=== PATIENT | male | born 1960 | race Two or more races ===

== ENCOUNTER 2024-01-24 06:25 | Inpatient (IN) | payer BC ==
[2024-01-24] VITALS (27 sets, daily range): BP systolic 83–147; BP diastolic 40–83; PULSE 76–89; RESP 9–30; TEMP 97.6; O2SAT 96–100
[~2024-01-24] VITALS: Ht 167.6 cm; Wt 78.1 kg
[~2024-01-24 06:25] MED LIST: AMIO200T33 PO; APIX5TAB PO; ATOR-507 PO; EZET-10 PO; GABA-339 PO; TAMS0.4C39 PO
[2024-01-24] MEDS ORDERED: MIDAZOLAM HCL 2MG/2ML 2ml VIAL (1mg/ml) ONE (07:16)
[2024-01-24] MEDS ORDERED: fentaNYL CITRATE 100 MCG/2 ML VL ONE (07:16)
[2024-01-24] MEDS ORDERED: MEPERIDINE HCL (50 MG/ML) 1 ML VIAL ONE (07:16)
--- NOTE | 2024-01-24 07:53 | DVHHP2 ---
Admitting Diagnosis: lumbar spinal stenosis with neurogenic claudication History of Present Illness Home Meds Reported Medications Amiodarone Hcl (Amiodarone Hcl) 200 Mg Tab, 50 MG PO DAILY, TAB 01/20/24 Gabapentin (Gabapentin) 600 Mg Tab, 600 MG PO TID, TAB 01/20/24 Ezetimibe (Ezetimibe) 10 Mg Tab, 10 MG PO DAILY, TAB 01/20/24 Apixaban Base (ELIQUIS) 5 Mg Tab, 5 MG PO BID, TAB 01/20/24 Tamsulosin Hcl (Tamsulosin Hcl) 0.4 Mg Cap, 0.4 MG PO DAILY, CAP 01/20/24 Atorvastatin Calcium (Lipitor) 40 Mg Tab, 40 MG PO DAILY, TAB 01/20/24 Timing/Duration of Neck Pain: Constant, Getting worse, Changing over time Quality of Neck Pain: Burning, Cramping Timing/Duration of Back Pain: Changing over time Quality of Back Pain: Burning, Cramping, Sharpness Back Pain Location: Lumbar spine Back Pain Radiation: Buttocks, Thigh area, Lower legs Past Medical History Cardiac: No pertinent Hx Pulmonary: No pertinent Hx Central Nervous System: No pertinent Hx Hemotology/Oncology: No pertinent Hx Hepatobiliary: No pertinent Hx Psychiatric: No pertinent Hx Musculoskeletal: Chronic low back pain, Osteoarthritis Rheumotologic: No pertinent Hx Infectious Disease: No peritnent Hx ENT: No pertinent Hx Renal/: No pertinent Hx Dermatology: No pertinent Hx Smoker: No Hx (Negative) Alocohol: Occassional Lives with: With family Domestic Violence: Neg Review of Systems Constitutional: No symptom reported Ears, Nose, & Throat: No symptom reported Eyes: No symptom reported Pulmonary/Respiratory: No symptom reported Gastrointestinal: No symptom reported Genitourinary: No symptom reported Musculoskeletal: Muscle stiffness Skin: No symptom reported Psychiatric: No symptom reported Endocrine: No symptom reported H&P Exam Vital Signs Vital Signs Date Time Temp Pulse Resp B/P (MAP) Pulse Ox O2 Delivery O2 Flow Rate FiO2 01/24/24 06:32 98.1 69 18 114/78 (90) 99 98.1 General Appeara: Well developed, Well nourished, Normal Appearance Head Exam: Normal inspection Neck Exam: Normal inspection, Non-tender, Normal alignment Eye Exam: bilateral eye Normal inspection, bilateral eye PERRL, bilateral eye EOMI Nasal Exam: Normal inspection Mouth: Normal Inspection Pulmonary/Respiratory: Normal inspection, Normal breath sounds, Chest non- tender, Lungs clear Cardiovascular/Chest: Normal inspection, Regular rate, Normal Rhythm Abdominal Exam: Normal bowel sounds, Soft, No tenderness, No hepatospenomegaly, No masses Rectal Exam: Deferred Back Exam: Muscle spasm, Vertebral tenderness Pelvic Exam: Not done Male Genital Exam: Not done Shoulder Exam: Normal inspection, Non-tender, Normal ROM Elbow/Forearm Exam: Normal inspection, Non-tender, Normal ROM Wrist Exam: Normal inspection, Non-tender, Normal ROM Hand Exam: Normal inspection, Non-tender, Normal ROM Hip exam: Normal inspection, Non-tender, Normal range of motion Legs: bilateral leg non-tender, bilateral leg normal inspection, bilateral leg normal range of motion, bilateral leg no evidence of injury Knees: bilateral knee non-tender, bilateral knee normal inspection, bilateral knee normal range of motion, bilateral knee no evidence of injury Ankle Exam: bilateral ankle Normal inspection, bilateral ankle Non-tender, bilateral ankle Normal range of motion, bilateral ankle No evidence of injury Foot: bilateral foot non-tender, bilateral foot normal inspection, bilateral foot normal range of motion, bilateral foot no evidence of injury Tendon/ Neuro: Motor deficit, Sensory deficit FOOD QUALITY TESTER Exam: Normal hearing, Normal speech, PERRL Motor/Sensory: Weak motor strength RLE, Weak motor strength LLE Deep Tendon Ref: All intact Neuro/Mental St: Alert, Oriented Appearance: Appropriate appearance, Appropriate insight Eye contact/ Speech: Cooperative, Good eye contact, Normal speech Coordination/Gait: Normal finger->nose, Normal gait, Negative Romberg's sign Skin Exam: Normal inspection, Normal color, Warm/dry Lymphatic: Normal inspection Assessment/Plan Primary Diagnosis lumbar spinal stenosis with neurogenic claudication Plan admit for elective lumbar spine surgery Plan discussed with: Patient CHASE ARELLANO MD Jan 24, 2024 07:53
[2024-01-24] MEDS ORDERED: DexAMETHasone SOD PHOS 10MG/1ML VIAL INJ ONE (08:23)
[2024-01-24] MEDS ORDERED: PROPOFOL 10 MG/ML 20 ML IV ONE (08:23)
[2024-01-24] MEDS ORDERED: fentaNYL CITRATE 100 MCG/2 ML VL IV PRN (09:00)
[2024-01-24] MEDS ORDERED: MIDAZOLAM HCL 2MG/2ML 2ml VIAL (1mg/ml) IV PRN (09:00)
[2024-01-24] MEDS ORDERED: MORPHINE SULFATE 4 MG/ML SYR/VIAL IV PRN (09:00)
[2024-01-24] MEDS ORDERED: ePHEDrine SULFATE 50 MG/ML AMP IV PRN (09:00)
[2024-01-24] MEDS ORDERED: hydrALAZINE HCL 20 MG/ML VL IV PRN (09:00)
[2024-01-24] MEDS: LIDOCAINE 1%HCL (LOCAL ANESTH) 10 ML MDV IJ ONE (09:17)
[2024-01-24] MEDS ORDERED: SUGAMMADEX 200mg/2ml Vial (100MG/ML) IV ONE (11:13)
[2024-01-24] MEDS ORDERED: ceFAZolin 1GM/50ML 50 ML IV SCH ×4 (11:15→14:00)
[2024-01-24] MEDS ORDERED: MORPHINE SULFATE INJ 2 MG/ml SYRG IV PRN ×4 (11:15)
[2024-01-24] MEDS ORDERED: ONDANSETRON HCL 4 MG/2 ML VIAL IV PRN (11:15)
[2024-01-24] MEDS ORDERED: ACETAMINOPHEN 325 MG TAB PO PRN (11:15)
[2024-01-24] MEDS ORDERED: HYDROcodone-ACET 10/325MG TAB PO PRN (11:15)
[2024-01-24] MEDS ORDERED: NITROGLYCERIN 0.4 MG SL TAB SL PRN ×2 (11:15)
[2024-01-24] MEDS ORDERED: D5W/SOD CHLO 0.9% 1,000 ML IV SCH (11:15)
[2024-01-24] MEDS: KETOROLAC TROMETH 30 MG/ML 1ML VIAL IV ONE (12:45)
[2024-01-24] MEDS: HYDROmorphone HCL 2 MG/ML VL/or syr IV PRN (12:50)
[2024-01-24] MEDS: MIDAZOLAM HCL 2MG/2ML 2ml VIAL (1mg/ml) IV ONE (13:05)
[2024-01-24] MEDS: NOREPINEPHRINE 8 MG/250ML KIT 250 ML IV SCH (13:36)
[2024-01-24] MEDS: LIDOCAINE W/ EPINEPHRINE 1% 20ML VIAL ONE (13:45)
[2024-01-24] MEDS: ceFAZolin 2 GM/D5W100ml 100 ML IV ONE (13:46)
[2024-01-24] MEDS: levoFLOXacin 500MG 100 ML IV ONE ×2 (13:46)
[2024-01-24] MEDS: TRANEXAMIC ACID 20 ML ONE (13:46)
[2024-01-24] MEDS: DOXAPRAM HCL 20 MG/ML 20ML VIAL INJ IV ONE (13:47)
[2024-01-24] MEDS: MIDAZOLAM HCL 2MG/2ML 2ml VIAL (1mg/ml) ONE (13:47)
[2024-01-24] MEDS: HYDROmorphone HCL 2 MG/ML VL/or syr ONE (13:47)
[2024-01-24] MEDS: levoFLOXacin 750MG 150 ML IV ONE (13:47)
[2024-01-24] MEDS: NOREPINEPHRINE 8 MG/250ML KIT 250 ML IV ONE (13:48)
[2024-01-24] MEDS ORDERED: CYCLOBENZAPRINE HCL 10 MG TAB PO SCH (14:00)
[2024-01-24] MEDS: CYCLOBENZAPRINE HCL 10 MG TAB PO SCH (14:00)
[2024-01-24] MEDS: ONDANSETRON HCL 4 MG/2 ML VIAL IV PRN (14:30)
[2024-01-24] MEDS: METOCLOPRAMIDE HCL 5MG/ml INJ 2ml VIAL IV ONE (15:20)
[2024-01-24] MEDS: ceFAZolin 1GM/50ML 50 ML IV SCH (15:30)
[2024-01-24] MEDS: METOCLOPRAMIDE HCL 5MG/ml INJ 2ml VIAL ONE (15:35)
[2024-01-24] MEDS: ACETAMINOPHEN IV 100 ML IV ONE (16:04)
[2024-01-24] MEDS: ONDANSETRON HCL 4 MG/2 ML VIAL IV ONE (16:11)
[2024-01-24] MEDS: D5W/SOD CHLO 0.9% 1,000 ML IV SCH (16:12)
[2024-01-24] MEDS: ACETAMINOPHEN IV 1000 MG/100ML (10MG/ML) IV ONE (16:13)
[2024-01-24] MEDS: PROCHLORPERAZINE EDISYLATE 5 MG/ML 2ML VIAL IV ONE (16:29)
--- NOTE | 2024-01-24 16:55 | DVHOP2 ---
Operative Report - 2 Report Details Date: 01/24/24 Preop Diagnosis: lumbar spondylolisthesis /spinal stenosis causing incapacitating low back pain and radiculopathy Postop Diagnosis: same as pre op Surgeon: Bakari Kern MD Sweatband Cutting Machine Operator: Angelica diaz NP Anesthesiologist: farhat Anesthesia: General Consent: The patient was informed of the risks and benefits of the procedure. These include but are not limited to complications of anesthesia, postoperative infection, incomplete relief of symptoms, recurrence of symptoms, damage to blood vessels, nerves and tendons, deep venous thrombosis, pulmonary embolism and possible need for repeat surgery in the future. Name of Procedure Performed see detailed note Procedure Details Procedure Details: Pre-op Diagnosis: Lumbar Degenerative Disk Disease and Lumbar Spinal Stenosis causing Incapacitating back pain, radiculopathy and progressive neurologic deficit Post-op Diagnosis: Lumbar Degenerative Disk Disease and Lumbar Spinal Stenosis causing Incapacitating back pain, radiculopathy and progressive neurologic deficit Procedure: Lumbar 5 laminectomy with Lumbar 5 foraminotomies and facetectomies to decompress central canal and Lumbar 5 nerve roots Lumbar 4 laminectomy with Lumbar 4 foraminotomies and facetectomies to decompress central canal and Lumbar 4 nerve roots Lumbar 3 laminectomy with Lumbar 3 foraminotomies and facetectomies to decompress central canal and Lumbar 4 nerve roots Lumbar 4 to 5 posterior spinal interbody fusion with PEEK cage Lumbar 3 to 5 posterior spinal instrumentation with pedicle screws Local Bone Autograft For Fusion Allograft Bone Substitute (Bacterin) to augment Fusion Use of Demineralized Bone Matrix to Augment Fusion Microscope For Microdissection Surgeon: Bakari Kern MD Assist: JEREMY Mohr Anesthesia: General Fluids and EBL: See anesthesia note Patient was seen in the Pre Anesthesia Care Unit (PACU) and the operative site was initialed by me. All questions were answered to the patients satisfaction and chart reviewed. The patient was taken to the operative room where pre- operative antibiotics were given 30 minutes prior to incision. General anesthesia was induced and neuro-monitoring leads placed. Araiza catheter was placed. The patient was turned prone onto the [facility] spinal table. While positioning, I made sure that the belly was free to allow proper expansion of the lungs. The hips were extended and all bony prominences padded. The shoulders were abducted 80 degree and the elbows flexed 100 degrees with no tension on the brachial plexus. I check the foot arterial pulses and they were palpable. The patient was prepped and draped and time out was taken at this time per usual protocol. At this time, the C-arm fluoroscope was brought in and was used to rahel the incision borders proximally and distally. Using a Number 10 Blade, an incision was made extending it proximally and distally per C arm rahel from the posterior spinous process of lumbar 4,5 down to the lumbo-dorsal fascia. All bleeding was controlled with electrocautery. Self-retaining retractors were placed. Electrocautery was then used to take down the lumbo- dorsal fascia, to free the muscle off the bone bilaterally. A Yamila retractor was placed over the posterior spinous process proximally and a lateral C-arm fluoroscope image was taken to insure we were at the correct level. Next, using bovie electro cautery, The deep fascia laterally to the facet joints was removed to expose the transverse processes of lumbar 3, 4 and 5 while taking care to avoid injuring the facet capsule at the proximal end of the incision. Next, the microscope was bought in for visualization and using a Luxell rongeur, the posterior spinous process of lumbar 3 and 4 and 5 bone were removed and the bone was saved for use as local autograft. I used alternating Kerison 2 mm and 3 mm rongeurs to perform central laminectomies lumbar 5 and 4 and 3 to decompress the central canal. Next using alternating Kerison 2mm and 3 mm rongeurs, the superior articular facets of lumbar 3, 4 and 5 were removed bilaterally to decompress the lateral recess (facetectomies) and then extended proximally to decompress the foramen bilaterally (foraminotomies). I used a ball tipped nerve probed to insure that the respective nerve roots were able to be mobilized 5mm in each direction were unimpeded in the lateral recess and foramen. Next I carefully inspected the dura to make sure no durotomy was visible and it was not. I retracted the right lumbar 5 nerve medially and used increasing size jamal until the proper size prepared and then inserted a 8X28mm PEEK cage in to the disc space at L4/5 using C arm fluoroscopy. I covered the exposed dura with gelfoam soaked in thrombin and the microscope was wheeled away from the operative filed. The C-arm fluoroscope was brought in and perfect AP views of the lumbar 4 and 5 pedicles were obtained. I placed bilateral pedicle screws at these levels by: using a Lenke awl to make a ship's pilot hole, then a ball tip robe to make sure there was no pedicle breach, then a tap to prepare the track and a 6.5 mm diameter 45 mm length pedicle screw was placed bilaterally. This step to place bilateral pedicle screws was repeated up to the lumbar 3, 4 and 5 level. Next, the c-arm fluoroscope took an AP and lateral x-ray to ensure proper placement of the pedicle screws. Next, the neuro-stimulation probe was placed over the tip of each screw and each screw stimulated only after a current greater than 10 mA was delivered to the screw. Next , I took a Midas Aung Drill to decorticate the transverse process which were exposed and local bone graft, Bacterin allograft bone substitute and Demineralized bone matrix were placed along the inter transverse process intervals bilaterally (the fusion bed). Next a curved nish sized to fit the pedicle screw interval was placed and secured to each pedicle screw using set screws, The set screws were tightened using a torque screwdriver (set to 10 N*M torque) to secure the nish to the pedicle screws bilaterally. Final AP and lateral C arm fluoroscopic films were taken at this time. Next a 10 Salvadorean diameter Hemovac drain was laced deep to the lumbo- dorsal fascia. The lumbo-dorsal fascia was closed with interrupted 0-Vicry sutures. The subcutaneous tissue was closed with interrupted 2-0 Vicryl sutures. The skin was closed with running 2-0 nylon suture. Sterile dressings were place. The pt. was turned supine onto the stretcher, extubated and taken to the recovery room in stable condition. At the end of the case a TLSO brace was placed as well as an external bone stimulator. Condition Stable Disposition Still a Patient BAKARI KERN MD Jan 24, 2024 16:55
--- NOTE | 2024-01-24 19:33 | DVHINCON2 ---
Date Seen: Jan 24, 2024 Referring Physician Orthopedic spine surgery. Reason for Consultation Medical management. History of Present Illness 63-year-old male with known history of chronic AFib currently on anticoagulation which was had five days ago before surgery, dyslipidemia, BPH, peripheral neuropathy, chronic back pain with lumbar stenosis with neurogenic claudication status post L3-4 five surgery on01/24/2024. I was consulted for medical management. Patient currently denying any chest pain shortness of breath nausea vomiting diarrhea hematemesis hematochezia melena dysuria hematuria. Past Medical History Chronic AFib Dyslipidemia Peripheral neuropathy Lumbar spine stenosis with chronic back pain Past Surgical History Left inguinal hernia surgery Carpal tunnel surgery Status post L3-4 five lumbar spine surgery Allergies: Coded Allergies: NO KNOWN ALLERGIES (Unverified , 01/20/24) Home Meds Reported Medications Amiodarone Hcl (Amiodarone Hcl) 200 Mg Tab, 50 MG PO DAILY, TAB 01/20/24 Gabapentin (Gabapentin) 600 Mg Tab, 600 MG PO TID, TAB 01/20/24 Ezetimibe (Ezetimibe) 10 Mg Tab, 10 MG PO DAILY, TAB 01/20/24 Apixaban Base (ELIQUIS) 5 Mg Tab, 5 MG PO BID, TAB 01/20/24 Tamsulosin Hcl (Tamsulosin Hcl) 0.4 Mg Cap, 0.4 MG PO DAILY, CAP 01/20/24 Atorvastatin Calcium (Lipitor) 40 Mg Tab, 40 MG PO DAILY, TAB 01/20/24 Current Medications Current Medications Medications (Trade) Dose Ordered Sig/Elzbieta Route PRN Reason Start Time Stop Time Status Last Admin Hydralazine HCl (Apresoline Injection) 5 mg Q10M PRN IV SBP>160 01/24/24 09:00 01/24/24 09:51 DC Morphine Sulfate 2 mg Q2HPRN PRN IV BREAKTHROUGH PAIN (7-10) 01/24/24 09:00 01/24/24 09:08 DC Midazolam HCl (Versed Injection) 1 mg Q10M PRN IV ANXIETY 01/24/24 09:00 01/24/24 09:41 DC Ephedrine Sulfate (ePHEDrine SULFATE) 10 mg Q10M PRN IV SBP LESS THAN 90 01/24/24 09:00 01/24/24 09:41 DC Fentanyl Citrate 25 mcg Q1HP PRN IV BREAKTHROUGH PAIN (7-10) 01/24/24 09:00 01/24/24 09:08 DC Hydromorphone HCl (Dilaudid Injection) 0.5 mg Q10M PRN IV SEVERE PAIN (7-10 PAIN SCALE) 01/24/24 09:00 01/24/24 09:41 DC 01/24/24 13:00 Dextrose/Sodium Chloride 1,000 ml @ 100 mls/hr Q10H IV 01/24/24 11:15 UNV Ondansetron HCl (Zofran) 4 mg Q4HP PRN IV NAUSEA / VOMITING 01/24/24 11:15 01/24/24 14:30 Acetaminophen (Tylenol Tablet) 650 mg Q6HP PRN PO MILD PAIN (1-3 PAIN SCALE) 01/24/24 11:15 Acetaminophen/ Hydrocodone Bitart (Franklin 10/325MG Tab) 1 tab Q6HP PRN PO MODERATE PAIN (4-6 PAIN SCALE) 01/24/24 11:15 UNV Morphine Sulfate 1 mg Q4HP PRN IV SEVERE PAIN (7-10 PAIN SCALE) 01/24/24 11:15 UNV Cyclobenzaprine HCl (Flexeril Tablet) 10 mg TID PO 01/24/24 14:00 UNV Docusate Sodium (Colace Capsule) 100 mg BID PO 01/24/24 22:00 UNV Cefazolin Sodium 50 ml @ 100 mls/hr Q8HR IV 01/24/24 14:00 01/24/24 13:46 DC Nitroglycerin (Ntrostat Sublingual) 0.4 mg Q5MINP PRN SL FOR CHEST PAIN 01/24/24 11:15 Morphine Sulfate 2 mg Q30M PRN IV FOR CHEST PAIN 01/24/24 11:15 Dextrose/Sodium Chloride 1,000 ml @ 100 mls/hr Q10H IV 01/24/24 11:15 01/24/24 16:12 Ondansetron HCl (Zofran) 4 mg Q4HP PRN IV NAUSEA / VOMITING 01/24/24 11:15 UNV Acetaminophen (Tylenol Tablet) 650 mg Q6HP PRN PO MILD PAIN (1-3 PAIN SCALE) 01/24/24 11:15 UNV Acetaminophen/ Hydrocodone Bitart (Franklin 10/325MG Tab) 1 tab Q6HP PRN PO MODERATE PAIN (4-6 PAIN SCALE) 01/24/24 11:15 Morphine Sulfate 1 mg Q4HP PRN IV SEVERE PAIN (7-10 PAIN SCALE) 01/24/24 11:15 Cefazolin Sodium 50 ml @ 50 mls/hr Q8H IV 01/24/24 11:15 01/24/24 13:47 DC Cyclobenzaprine HCl (Flexeril Tablet) 10 mg TID PO 01/24/24 14:00 Docusate Sodium (Colace Capsule) 100 mg BID PO 01/24/24 22:00 Cefazolin Sodium 50 ml @ 100 mls/hr Q8HR IV 01/24/24 14:00 01/24/24 13:46 DC Cefazolin Sodium 50 ml @ 100 mls/hr Q8HR IV 01/24/24 14:00 01/26/24 06:29 UNV Nitroglycerin (Ntrostat Sublingual) 0.4 mg Q5MINP PRN SL FOR CHEST PAIN 01/24/24 11:15 UNV Morphine Sulfate 2 mg Q30M PRN IV FOR CHEST PAIN 01/24/24 11:15 UNV Norepinephrine Bitartrate 250 ml @ 18.75 mls/ hr [id number] IV 01/24/24 13:45 01/24/24 13:36 Cefazolin Sodium 50 ml @ 50 mls/hr Q8H IV 01/24/24 15:00 01/25/24 23:59 01/24/24 15:30 Review of Systems 12 review of system were negative except mentioned above. 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 Bakari Kern for resumption of Eliquis. Risks and benefits and alternatives of Eliquis including risk of stroke while he was off of Eliquis explained with the patient and patient's family at bedside they understand verbalized understanding and agreeable to plan. Plan discussed with: Patient Date of Service: Jan 24, 2024 Billing Provider: INDRA HOROWITZ MD Common Visit Codes: NOT BILLABLE INDRA HOROWITZ MD Jan 24, 2024 19:33
[2024-01-24 20:13] LABS: Alanine Aminotransferase 38 U/L (7-40); Albumin 3.8 g/dL (3.2-4.8); Alkaline Phosphatase 54 U/L (46-116); Anion Gap 11 (5-15); Aspartate Aminotransferase 41 U/L (13-40); BUN/Creatinine Ratio 14.9 (10.0-20.0); Bilirubin, Total 0.5 mg/dL (0.2-1.0); Blood Urea Nitrogen 13 mg/dL (9-23); Calcium 8.6 mg/dL (8.7-10.4); Carbon Dioxide 21 mmol/L (20-31); Chloride 109 mmol/L (98-107); Glucose 216 mg/dL (74-106); Potassium 4.5 mmol/L (3.5-5.1); Sodium 141 mmol/L (136-145); Total Protein 6.4 g/dL (5.7-8.2)
[2024-01-24 20:17] LABS: Basophils # (auto) 0 10 ^3/uL (0-0.2); Eosinophils # (auto) 0 10 ^3/uL (0-0.8); Hematocrit 36.8 % (41.0-53.0); Hemoglobin 12.3 g/dL (13.5-17.5); Lymphocytes # (auto) 0.4 10 ^3/uL (0.4-5.4); Lymphocytes % (auto) 2.6 % (10.0-50.0); Mean Corpuscular Hgb Conc. 33.6 g/dL (32.0-36.0); Mean Corpuscular Volume 92.3 fL (80.0-100.0); Monocytes # (auto) 0.6 10 ^3/uL (0-1.3); Neutrophils # (auto) 13.1 10 ^3/uL (1.6-8.6); Neutrophils % (auto) 93.4 % (37.0-80.0); Nucleated Red Blood Cells % 0.1 %; Platelet Count (auto) 232 10^3/uL (140-450); Red Blood Cells 3.98 10^6/uL (4.5-5.90); Red Cell Distribution Width 13.8 % (11.8-14.3); White Blood Cell 14.1 10^3/uL (4.4-10.8)
[2024-01-24] MEDS: DOCUSATE SOD 100 MG CAP PO SCH (21:50)
[2024-01-24] MEDS ORDERED: DOCUSATE SOD 100 MG CAP PO SCH (22:00)
[2024-01-25] VITALS (64 sets, daily range): BP systolic 83–298; BP diastolic 35–291; PULSE 65–100; RESP 9–29; TEMP 97.8–100; O2SAT 96–100
[2024-01-25 05:30] LABS: Chloride 112 mmol/L (98-107); Potassium 4.3 mmol/L (3.5-5.1); Sodium 141 mmol/L (136-145)
[2024-01-25 05:31] LABS: Anion Gap 6 (5-15); Calcium 8.4 mg/dL (8.7-10.4); Carbon Dioxide 23 mmol/L (20-31)
[2024-01-25 05:36] LABS: BUN/Creatinine Ratio 14.9 (10.0-20.0); Blood Urea Nitrogen 10 mg/dL (9-23); Glucose 142 mg/dL (74-106)
[2024-01-25] MEDS: ACETAMINOPHEN 325 MG TAB PO PRN (06:39)
[2024-01-25] MEDS: HYDROcodone-ACET 10/325MG TAB PO PRN (11:01)
--- NOTE | 2024-01-25 13:30 | DVHPN2 ---
Subjective Overnight events noted. Patient was sitting in the chair comfortably patient was Changes from previous H/P or p: No Changes Objective Vitals Vital Signs Date Time Temp Pulse Resp B/P (MAP) Pulse Ox O2 Delivery O2 Flow Rate FiO2 01/25/24 11:15 78 22 108/66 (80) 99 01/25/24 08:00 Room Air* 0 21 01/25/24 08:00 98.1 98.1 Intake/Output Intake and Output 01/25/24 07:00 Intake Total 1800 ml Output Total 550 ml Balance 1250 ml Intake Oral 300 ml IV Total 1500 ml Output Urine Total 200 ml Drainage Total 150 ml Other 200 ml Exam HEENT pupils are reactive Neck is supple CV is S1-S2 regular rate and rhythm Respiratory are clear GI posterior bowel sounds Extremity 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 Medications Current Medications Medications Dose Ordered Sig/Elzbieta Route Start Time Stop Time Status Last Admin Dose Admin Dextrose/Sodium Chloride 1,000 ml @ 100 mls/hr Q10H IV 01/24/24 11:15 UNV Ondansetron HCl 4 mg Q4HP PRN IV 01/24/24 11:15 01/24/24 14:30 4 MG Acetaminophen 650 mg Q6HP PRN PO 01/24/24 11:15 01/25/24 06:39 650 MG Acetaminophen/ Hydrocodone Bitart 1 tab Q6HP PRN PO 01/24/24 11:15 UNV Morphine Sulfate 1 mg Q4HP PRN IV 01/24/24 11:15 UNV Cyclobenzaprine HCl 10 mg TID PO 01/24/24 14:00 UNV Docusate Sodium 100 mg BID PO 01/24/24 22:00 UNV Nitroglycerin 0.4 mg Q5MINP PRN SL 01/24/24 11:15 Morphine Sulfate 2 mg Q30M PRN IV 01/24/24 11:15 Dextrose/Sodium Chloride 1,000 ml @ 100 mls/hr Q10H IV 01/24/24 11:15 01/25/24 03:03 100 MLS/HR Ondansetron HCl 4 mg Q4HP PRN IV 01/24/24 11:15 UNV Acetaminophen 650 mg Q6HP PRN PO 01/24/24 11:15 UNV Acetaminophen/ Hydrocodone Bitart 1 tab Q6HP PRN PO 01/24/24 11:15 01/25/24 11:01 1 TAB Morphine Sulfate 1 mg Q4HP PRN IV 01/24/24 11:15 Cyclobenzaprine HCl 10 mg TID PO 01/24/24 14:00 01/25/24 06:01 10 MG Docusate Sodium 100 mg BID PO 01/24/24 22:00 01/25/24 10:24 100 MG Cefazolin Sodium 50 ml @ 100 mls/hr Q8HR IV 01/24/24 14:00 01/26/24 06:29 UNV Nitroglycerin 0.4 mg Q5MINP PRN SL 01/24/24 11:15 UNV Morphine Sulfate 2 mg Q30M PRN IV 01/24/24 11:15 UNV Norepinephrine Bitartrate 250 ml @ 18.75 mls/ hr [id number] IV 01/24/24 13:45 01/24/24 13:36 18.75 MLS/HR Cefazolin Sodium 50 ml @ 50 mls/hr Q8H IV 01/24/24 15:00 01/25/24 23:59 01/25/24 06:33 50 MLS/HR Laboratory Results Laboratory Tests 01/24/24 19:41 01/25/24 04:35 Chemistry Test 01/24/24 19:41 01/25/24 04:35 Albumin 3.8 g/dL (3.2-4.8) Calcium Level 8.6 mg/dL (8.7-10.4) L 8.4 mg/dL (8.7-10.4) L Total Protein 6.4 g/dL (5.7-8.2) LFT Test 01/24/24 19:41 Alanine Aminotransferase (ALT) 38 U/L (7-40) Alkaline Phosphatase 54 U/L (46-116) Aspartate Amino Transferase (AST) 41 U/L (13-40) H Total Bilirubin 0.5 mg/dL (0.2-1.0) Assessment/Plan Assessment/Plan 63-year-old male with a known history of chronic AFib currently off the anticoagulation because of surgery, dyslipidemia, peripheral neuropathy, who initially was brought in by spine surgery as an elective procedure for lumbar spine stenosis. 1. Chronic AFib currently in rate controlled, resume amiodarone 2. Dyslipidemia 3. Peripheral neuropathy 4. Lumbar spine stenosis with neurogenic claudication status post L3/4/5 laminectomy with decompression of central canal -DVT GI prophylaxis, pain meds as needed, physical therapy evaluation and treatment -please call spine surgery albicans resume Eliquis. Stop stroke explained to the patient in detail while he is off of Eliquis. He understands verbalized understanding and agreeable to plan. Plan discussed with: Patient My Orders Orders - INDRA HOROWITZ MD Procedure Category Date Status Time * Cardiology Consult CONS 01/24/24 Transmitted 16:46 *[facility] CONS 01/24/24 Transmitted -[place] 16:46 [facility] Screen SOPHIE 01/24/24 In Process 18:35 Date of Service: Jan 25, 2024 Billing Provider: INDRA HOROWITZ MD Common Visit Codes: NOT BILLABLE INDRA HOROWITZ MD Jan 25, 2024 13:30
[2024-01-26] VITALS (15 sets, daily range): BP systolic 96–128; BP diastolic 51–88; PULSE 65–87; RESP 12–20; TEMP 97.9–98.5; O2SAT 88–98
[2024-01-26 08:59] LABS: Potassium 3.8 mmol/L (3.5-5.1); Sodium 143 mmol/L (136-145)
[2024-01-26 09:00] LABS: Calcium 8.6 mg/dL (8.7-10.4)
[2024-01-26 09:03] LABS: Chloride 110 mmol/L (98-107)
[2024-01-26 09:05] LABS: BUN/Creatinine Ratio 11.3 (10.0-20.0); Blood Urea Nitrogen 8 mg/dL (9-23); Glucose 126 mg/dL (74-106)
[2024-01-26 09:13] LABS: Basophils # (auto) 0.1 10 ^3/uL (0-0.2); Basophils % (auto) 0.4 % (0.0-2.0); Eosinophils # (auto) 0.1 10 ^3/uL (0-0.8); Eosinophils % (auto) 1.1 % (0.0-7.0); Hematocrit 33.7 % (41.0-53.0); Hemoglobin 11.3 g/dL (13.5-17.5); Lymphocytes # (auto) 1.8 10 ^3/uL (0.4-5.4); Lymphocytes % (auto) 15.8 % (10.0-50.0); Mean Corpuscular Hemoglobin 31.1 pg (28.0-32.0); Mean Corpuscular Hgb Conc. 33.7 g/dL (32.0-36.0); Mean Corpuscular Volume 92.1 fL (80.0-100.0); Monocytes # (auto) 0.5 10 ^3/uL (0-1.3); Monocytes % (auto) 4.5 % (0.0-12.0); Neutrophils # (auto) 8.9 10 ^3/uL (1.6-8.6); Neutrophils % (auto) 78.2 % (37.0-80.0); Platelet Count (auto) 201 10^3/uL (140-450); Red Blood Cells 3.65 10^6/uL (4.5-5.90); Red Cell Distribution Width 13.9 % (11.8-14.3); White Blood Cell 11.3 10^3/uL (4.4-10.8)
[2024-01-26 11:10] LABS: Anion Gap 7 (5-15); Carbon Dioxide 26 mmol/L (20-31)
[2024-01-26] MEDS ORDERED: AMIO100T3 PO (14:22)
--- NOTE | 2024-01-26 14:55 | DVHPN2 ---
Subjective Overnight events noted. Patient still had two EUGENE drain which is draining about 100 mL. 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 Medications Current Medications Medications Dose Ordered Sig/Elzbieta Route Start Time Stop Time Status Last Admin Dose Admin Dextrose/Sodium Chloride 1,000 ml @ 100 mls/hr Q10H IV 01/24/24 11:15 UNV Ondansetron HCl 4 mg Q4HP PRN IV 01/24/24 11:15 01/24/24 14:30 4 MG Acetaminophen 650 mg Q6HP PRN PO 01/24/24 11:15 01/25/24 06:39 650 MG Acetaminophen/ Hydrocodone Bitart 1 tab Q6HP PRN PO 01/24/24 11:15 UNV Morphine Sulfate 1 mg Q4HP PRN IV 01/24/24 11:15 UNV Cyclobenzaprine HCl 10 mg TID PO 01/24/24 14:00 UNV Docusate Sodium 100 mg BID PO 01/24/24 22:00 UNV Nitroglycerin 0.4 mg Q5MINP PRN SL 01/24/24 11:15 Morphine Sulfate 2 mg Q30M PRN IV 01/24/24 11:15 Dextrose/Sodium Chloride 1,000 ml @ 100 mls/hr Q10H IV 01/24/24 11:15 01/26/24 13:30 100 MLS/HR Ondansetron HCl 4 mg Q4HP PRN IV 01/24/24 11:15 UNV Acetaminophen 650 mg Q6HP PRN PO 01/24/24 11:15 UNV Acetaminophen/ Hydrocodone Bitart 1 tab Q6HP PRN PO 01/24/24 11:15 01/26/24 07:58 1 TAB Morphine Sulfate 1 mg Q4HP PRN IV 01/24/24 11:15 Cyclobenzaprine HCl 10 mg TID PO 01/24/24 14:00 01/26/24 13:31 10 MG Docusate Sodium 100 mg BID PO 01/24/24 22:00 01/26/24 10:02 100 MG Cefazolin Sodium 50 ml @ 100 mls/hr Q8HR IV 01/24/24 14:00 01/26/24 06:29 UNV Nitroglycerin 0.4 mg Q5MINP PRN SL 01/24/24 11:15 UNV Morphine Sulfate 2 mg Q30M PRN IV 01/24/24 11:15 UNV Norepinephrine Bitartrate 250 ml @ 18.75 mls/ hr [id number] IV 01/24/24 13:45 01/24/24 13:36 18.75 MLS/HR Laboratory Results Laboratory Tests 01/26/24 08:28 Chemistry Test 01/26/24 08:28 Calcium Level 8.6 mg/dL (8.7-10.4) L Microbiology Microbiology Date/Time Source Procedure Growth Status 01/24/24 18:45 Nose MRSA Screen - Final Complete Assessment/Plan Assessment/Plan 63-year-old male with a known history of chronic AFib currently off the anticoagulation because of surgery, dyslipidemia, peripheral neuropathy, who initially was brought in by spine surgery as an elective procedure for lumbar spine stenosis. 1. Chronic AFib currently in rate controlled, resume amiodarone 2. Dyslipidemia 3. Peripheral neuropathy 4. Lumbar spine stenosis with neurogenic claudication status post L3/4/5 laminectomy with decompression of central canal -DVT GI prophylaxis, pain meds as needed, physical therapy evaluation and treatment -please call spine surgery albicans resume Eliquis. Stop stroke explained to the patient in detail while he is off of Eliquis. He understands verbalized understanding and agreeable to plan. Plan discussed with: Patient, Spouse Date of Service: Jan 26, 2024 Billing Provider: INDRA HOROWITZ MD Common Visit Codes: NOT BILLABLE INDRA HOROWITZ MD Jan 26, 2024 14:55
[2024-01-27] VITALS (8 sets, daily range): BP systolic 100–127; BP diastolic 59–82; PULSE 73–93; RESP 14–20; TEMP 98.1–98.7; O2SAT 95–98
--- NOTE | 2024-01-27 18:56 | DVHINCON2 ---
Date of service: Jan 27, 2024 History of Present Illness 63-year-old male with known history of parox AFib currently on anticoagulation which was had five days ago before surgery, dyslipidemia, BPH, peripheral neuropathy, chronic back pain with lumbar stenosis with neurogenic claudication status post L3-4 five surgery on01/24/2024. I was consulted for medical management. Patient currently denying any chest pain shortness of breath nausea vomiting diarrhea hematemesis hematochezia melena dysuria hematuria. Past Medical History Past Medical History Chronic AFib Dyslipidemia Peripheral neuropathy Lumbar spine stenosis with chronic back pain Past Surgical History Past Surgical History Left inguinal hernia surgery Carpal tunnel surgery Status post L3-4 five lumbar spine surgery Past Medical History reviewed Family History: Patient reports no known family medical history. Allergies: Coded Allergies: NO KNOWN ALLERGIES (Unverified , 01/20/24) Home Meds Reported Medications Amiodarone Hcl (AMIODARONE HCL) 100 Mg Tab, 50 MG PO DAILY 01/26/24 Gabapentin (Gabapentin) 600 Mg Tab, 600 MG PO TID, TAB 01/20/24 Ezetimibe (Ezetimibe) 10 Mg Tab, 10 MG PO DAILY, TAB 01/20/24 Apixaban Base (ELIQUIS) 5 Mg Tab, 5 MG PO BID, TAB 01/20/24 Tamsulosin Hcl (Tamsulosin Hcl) 0.4 Mg Cap, 0.4 MG PO DAILY, CAP 01/20/24 Atorvastatin Calcium (Lipitor) 40 Mg Tab, 40 MG PO DAILY, TAB 01/20/24 Discontinued Reported Medications Amiodarone Hcl (Amiodarone Hcl) 200 Mg Tab, 50 MG PO DAILY, TAB 01/20/24 Review of Systems 10 pt ros otherwise negative Vital Signs Vital Signs Date Time Temp Pulse Resp B/P (MAP) Pulse Ox O2 Delivery O2 Flow Rate FiO2 01/27/24 17:12 98.1 89 18 102/63 (76) 97 98.1 01/27/24 08:00 Room Air* 0 21 Physical Exam nad s1 s2 rrr ctab soft nt/nd no edema Labs/Diagnostic Data Labs Test 01/26/24 08:28 01/24/24 19:41 Range/Units White Blood Count 11.3 H 4.4-10.8 10^3/uL Red Blood Count 3.65 L 4.5-5.90 10^6/uL Hemoglobin 11.3 L 13.5-17.5 g/dL Hematocrit 33.7 L 41.0-53.0 % Mean Corpuscular Volume 92.1 80.0-100.0 fL Mean Corpuscular Hemoglobin 31.1 28.0-32.0 pg Mean Corpuscular Hemoglobin Concent 33.7 32.0-36.0 g/dL Red Cell Distribution Width 13.9 11.8-14.3 % Platelet Count 201 140-450 10^3/uL Mean Platelet Volume 7.4 6.9-10.8 fL Neutrophils (%) (Auto) 78.2 37.0-80.0 % Lymphocytes (%) (Auto) 15.8 10.0-50.0 % Monocytes (%) (Auto) 4.5 0.0-12.0 % Eosinophils (%) (Auto) 1.1 0.0-7.0 % Basophils (%) (Auto) 0.4 0.0-2.0 % Neutrophils # (Auto) 8.9 H 1.6-8.6 10 ^3/uL Lymphocytes # (Auto) 1.8 0.4-5.4 10 ^3/uL Monocytes # (Auto) 0.5 0-1.3 10 ^3/uL Eosinophils # (Auto) 0.1 0-0.8 10 ^3/uL Basophils # (Auto) 0.1 0-0.2 10 ^3/uL Nucleated Red Blood Cells 0.0 % Sodium Level 143 136-145 mmol/L Potassium Level 3.8 3.5-5.1 mmol/L Chloride Level 110 H 98-107 mmol/L Carbon Dioxide Level 26 20-31 mmol/L Anion Gap 7 5-15 Blood Urea Nitrogen 8 L 9-23 mg/dL Creatinine 0.71 0.700-1.30 mg/dL Glomerular Filtration Rate Calc 104 >90 mL/min BUN/Creatinine Ratio 11.3 10.0-20.0 Serum Glucose 126 H 74-106 mg/dL Calcium Level 8.6 L 8.7-10.4 mg/dL Total Bilirubin 0.5 0.2-1.0 mg/dL Aspartate Amino Transferase (AST) 41 H 13-40 U/L Alanine Aminotransferase (ALT) 38 7-40 U/L Alkaline Phosphatase 54 46-116 U/L Total Protein 6.4 5.7-8.2 g/dL Albumin 3.8 3.2-4.8 g/dL Microbiology Date/Time Source Procedure Growth Status 01/24/24 18:45 Nose MRSA Screen - Final Complete Assessment hx of pafib obesity postop spine surgery transient hypotension Plan/Recommendation bp normal tele is sinus no symptoms resume home meds fu with his cards after dc will sign off Plan discussed with: Patient ANDREIA DIAS MD Jan 27, 2024 18:56
[2024-01-28 05:00] VITALS: BP 107/83; PULSE 83; RESP 17; TEMP 97.9; O2SAT 96
[2024-01-28 08:00] VITALS: PULSE 82; PULSE 93; RESP 16
[2024-01-28 09:00] VITALS: BP 118/77; PULSE 82; RESP 20; TEMP 96.8; O2SAT 98
--- NOTE | 2024-01-28 09:03 | DVHDS2 ---
Discharge Summary Date of Admission Jan 24, 2024 at 11:11 Date of Discharge: Jan 28, 2024 Admitting Diagnosis lumbar spinal stenosis Labs/Diagnostic Data: Laboratory Results Test 01/26/24 08:28 01/24/24 19:41 White Blood Count 11.3 10^3/uL (4.4-10.8) Red Blood Count 3.65 10^6/uL (4.5-5.90) Hemoglobin 11.3 g/dL (13.5-17.5) Hematocrit 33.7 % (41.0-53.0) Mean Corpuscular Volume 92.1 fL (80.0-100.0) Mean Corpuscular Hemoglobin 31.1 pg (28.0-32.0) Mean Corpuscular Hemoglobin Concent 33.7 g/dL (32.0-36.0) Red Cell Distribution Width 13.9 % (11.8-14.3) Platelet Count 201 10^3/uL (140-450) Mean Platelet Volume 7.4 fL (6.9-10.8) Neutrophils (%) (Auto) 78.2 % (37.0-80.0) Lymphocytes (%) (Auto) 15.8 % (10.0-50.0) Monocytes (%) (Auto) 4.5 % (0.0-12.0) Eosinophils (%) (Auto) 1.1 % (0.0-7.0) Basophils (%) (Auto) 0.4 % (0.0-2.0) Neutrophils # (Auto) 8.9 10 ^3/uL (1.6-8.6) Lymphocytes # (Auto) 1.8 10 ^3/uL (0.4-5.4) Monocytes # (Auto) 0.5 10 ^3/uL (0-1.3) Eosinophils # (Auto) 0.1 10 ^3/uL (0-0.8) Basophils # (Auto) 0.1 10 ^3/uL (0-0.2) Nucleated Red Blood Cells 0.0 % Sodium Level 143 mmol/L (136-145) Potassium Level 3.8 mmol/L (3.5-5.1) Chloride Level 110 mmol/L (98-107) Carbon Dioxide Level 26 mmol/L (20-31) Anion Gap 7 (5-15) Blood Urea Nitrogen 8 mg/dL (9-23) Creatinine 0.71 mg/dL (0.700-1.30) Glomerular Filtration Rate Calc 104 mL/min (>90) BUN/Creatinine Ratio 11.3 (10.0-20.0) Serum Glucose 126 mg/dL (74-106) Calcium Level 8.6 mg/dL (8.7-10.4) Total Bilirubin 0.5 mg/dL (0.2-1.0) Aspartate Amino Transferase (AST) 41 U/L (13-40) Alanine Aminotransferase (ALT) 38 U/L (7-40) Alkaline Phosphatase 54 U/L (46-116) Total Protein 6.4 g/dL (5.7-8.2) Albumin 3.8 g/dL (3.2-4.8) Other Laboratory Tests 01/26/24 08:28 Brief Hx & Hospital Course: pt. tolerated the surgery well. Once he tolerated po pain meds , passed p.t., was hemodynamically stable, plans made to d/c home with home health. Operations or Procedures see detailed note Condition at Discharge: Stable Final Diagnosis/Problems List same as pre op Discharge Disposition: Still a Patient SNF Discharge Will this Physician continue t: Yes Discharge Instruct/Medications Diet: Regular Activity: No Restrictions, As Tolerated Follow Up/Referral: in [address] casanova Medications: called in via clinic emr Discharge Statement: "Patient was advised to return to the ER or call 911 if any headaches, dizziness, shortness of breath, chest pain, abdominal pain, bleeding, fevers, or worsening of medical condition. Patient was counseled about treatment plan, medications, possible side effects, patientverbalized understanding. All questions were answered to the best of my ability. This discharge took greater then 30 minutes in planning, reviewing documentation, counseling the patient, and discussing with other team members." ASSESSMENT ASSESSMENT Assessment same as pre op CHAES CASANOVA MD Jan 28, 2024 09:02
[2024-01-28 09:11] VITALS: BP 118/77; PULSE 82; RESP 20; TEMP 98.6; O2SAT 98
[2024-01-28] MEDS ORDERED: PHENYLEPHRINE HCL 10 MG/ML VL IV ONE (11:44)
[2024-01-28] MEDS ORDERED: ETOMIDATE (2MG/ML) 20ML VIAL IV ONE (11:44)
[2024-01-28] MEDS ORDERED: ROCURONIUM 10MG/ML 10ML VIAL IV ONE (11:44)
--- NOTE | 2024-01-29 15:23 | DVH ---
CLINICAL INDICATION: L3-5 DECOMPRESSION/ INTERBODY FUSION TECHNIQUE: 0 radiographic views of the interbody fusion were obtained. Comparison: None FINDINGS/IMPRESSION: Fluoro time 2 minutes Cumulative dose: 76.31 mGy
--- NOTE | 2024-01-29 15:26 | DVH ---
C-ARM FLUOROSCOPY: PROCEDURE: Interbody fusion and L3 through L5 decompression FLUOROSCOPY TIME: 2 minutes Cumulative dose: DLP: 76.32 mGy
== END 2024-01-28 11:45 | disposition home health service (06) | DRG 427 ==
LOC: SUR 06:25 → TELE 11:11 → DOU IN ICU 18:00 → TELE-WESTW 01-26 08:45
PROVIDERS: ADMIT Orthopaedic Surgery; ATTEND Hospitalist
PROC: 01NB0ZZ Release Lumbar Nerve, Open Approach (ICD-10-PCS; 2024-01-24)
PROC: 00NY0ZZ Release Lumbar Spinal Cord, Open Approach (ICD-10-PCS; 2024-01-24)
PROC: 4A11X4G Monitoring of Peripheral Nervous Electrical Activity, Intraoperative, External Approach (ICD-10-PCS; 2024-01-24)
PROC: 0SG1071 Fusion of 2 or more Lumbar Vertebral Joints with Autologous Tissue Substitute, Posterior Approach, Posterior Column, Open Approach (ICD-10-PCS; 2024-01-24)
PROC: 0SG10AJ Fusion of 2 or more Lumbar Vertebral Joints with Interbody Fusion Device, Posterior Approach, Anterior Column, Open Approach (ICD-10-PCS; principal; 2024-01-24 07:43)
DX: M48.062 Spinal stenosis, lumbar region with neurogenic claudication (principal); I48.20 Chronic atrial fibrillation, unspecified; E78.5 Hyperlipidemia, unspecified; G62.9 Polyneuropathy, unspecified; G89.29 Other chronic pain; N40.0 Benign prostatic hyperplasia without lower urinary tract symptoms; I48.0 Paroxysmal atrial fibrillation; I95.89 Other hypotension; E66.9 Obesity, unspecified; Z79.01 Long term (current) use of anticoagulants; Z68.27 Body mass index [BMI] 27.0-27.9, adult; Z79.899 Other long term (current) drug therapy
CPT/HCPCS: 36415; 72110; 76000; 80048; 80053; 85025; 86850; 86870; 86900; 86901; 87081; 97110; 97116; 97163; 97530; G0378; J0131; J1100; J1885; J1956; J2003; J2250; J2405; J2704; J7042